=== PATIENT | male | born 1990 | race Caucasian/White ===

== ENCOUNTER 2021-11-13 14:59 | Emergency (ER) | payer OTHER ==
[~2021-11-13] VITALS: Ht 167.6 cm; Wt 63.6 kg
[2021-11-13 17:40] VITALS: BP 123/82
== END 2021-11-13 19:14 | disposition left against medical advice (07) ==
LOC: EMS 14:59
DX: T40.2X1A Poisoning by other opioids, accidental (unintentional), initial encounter (principal); F12.90 Cannabis use, unspecified, uncomplicated; Y92.89 Other specified places as the place of occurrence of the external cause
CPT/HCPCS: 99283